=== PATIENT | female | born 1965 | race Caucasian/White ===

== ENCOUNTER → 2021-03-06 08:40 | Outpatient (CLI) | payer BC, SELFPAY ==
[2021-03-07 19:36] LABS: SARS-CoV-2 RNA PCR Negative
== END ==
PROVIDERS: PCP Family Medicine; Visit Provider Family Medicine
DX: R05 Cough (principal); Z20.822 Contact with and (suspected) exposure to COVID-19
CPT/HCPCS: C9803; U0003; U0005

== ENCOUNTER 2025-10-06 08:27 | Emergency (ER) | payer OTHER, SELFPAY ==
--- OUTSIDE RECORDS SUMMARY | 2025-10-06 08:28 | XMS_ITS | Clinical Summary ---
Author Organization [facility] Address [address] [place] [address] Phone Care Team Providers Care City Carrier Assistant Name Role Phone Unavailable Primary Care Provider Unavailabl e Medications ESTROGENS,CONJUG ATED (CONJUGATED ESTROGENS, BULK,) Misc Powd by Misc.(Non-D rug; Combo Route) route. 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 Gender Identity Not on file Sexual Orientation Not on file Plan of Treatment Health Maintenance Due Date Last Done Comments DTAP/TDAP/TD VACCINES (1 - Tdap) 1984 HPV/Cotest (21-29) 1986 CERVICAL CANCER SCREENING 1995 HPV/Cotest (30-65) 1995 PAP SMEAR 1995 COLORECTAL SCREENING 2010 Colorectal Cancer Screening 2010 FIT-DNA Q 3 years 2010 FIT/FOBT Q 1 year 2010 Flex Sig/CT Colonography Q 5 years 2010 BREAST CANCER SCREENING 05/22/2011 05/22/20 10, 05/14/2009, 05/08/2008 ZOSTER VACCINE (1 of 2) 2015 INFLUENZA VACCINE (#1) 2025 RSV VACCINE (60+ or ) (1 - 1-dose 75+ series) 2040 HEPATITIS B VACCINES Aged Out No long er eligible based on patient's age to complete this topic Procedures Procedure Name Priority Date/Time Associated Diagnosis Comments MAMMO SCREEN BILAT W OR WO CAD Routine 05/22/2010 11:22 AM CDT Other Screening Mammogram from Last 3 Months or Most Recently Relevant to Health Maintenance Results * MAMMO DIGITAL SCREEN BILAT (05/22/2010 11:22 AM CDT) Anatomical Region Laterality Modality Breast Bilateral Mammography Impressions 05/28/2010 7:17 AM CDT : No mammographic evidence of malignancy, without change since April 2008. OVERALL ASSESSMENT: BI-RADS: 1, negative. Narrative 05/28/2010 7:17 AM CDT BILATERAL SCREENING DIGITAL MAMMOGRAM WITH COMPUTER ASSISTED DIAGNOSIS, 05/22/2010 Clinical History: Screening mammogram. Findings: The parenchyma is predominantly fatty bilaterally. There is no mass, malignant calcification, lymphadenopathy or other sign of malignancy. The images were reviewed using the CAD system. Procedure Note Edmond Perera MD - 05/28/2010 BILATERAL SCREENING DIGITAL MAMMOGRAM WITH COMPUTER ASSISTED DIAGNOSIS,05/22/2010 Clinical History: Screening mammogram. Findings: The parenchyma is predominantly fatty bilaterally. There is nomass, malignant calcification, lymphadenopathy or other sign ofmalignancy. The images were reviewed using the CAD system. IMPRESSION: No mammographic evidence of malignancy, without change sinceApril 2008. OVERALL ASSESSMENT: BI-RADS: 1, negative. Miguel Barros MD MAMMO ORDERABLES Final Result from Last 3 Months or Most Recently Relevant to Health Maintenance
--- OUTSIDE RECORDS SUMMARY | 2025-10-06 08:28 | XMS_ITS | Encounter Summary ---
Author Organization [facility] [facility] Address 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
--- OUTSIDE RECORDS SUMMARY | 2025-10-06 08:28 | XMS_ITS | Encounter Summary ---
Author Organization [facility] Address 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 Gender Identity Not on file Sexual Orientation Not on file documented as of this encounter Plan of Treatment Not on file documented as of this encounter Procedures Procedure Name Priority Date/Time Associated Diagnosis Comments MAMMO SCREENING BILAT Routine 05/14/2009 5:02 PM CDT documented in this encounter Results * MAMMO SCREENING BILAT (05/14/2009 5:02 PM CDT) Anatomical Region Laterality Modality Breast Bilateral Other 05/14/2009 5:02 PM CDT Narrative 05/16/2009 8:27 AM CDT [facility] [place] [address], [place] [address] Admit Date: 05/14/2009 VIANCA VIDES Sex: F Admit Prov: MIGUEL BARROS Date: 1965 Primary Care Prov: CMRN: [id number] Room: [facility] SSN: [id number] IMAGING SERVICES Ordering Prov: MIGUEL BARROS Accession Number: [id number] Interpretation BILATERAL SCREENING MAMMOGRAM. 05/14/2009 HISTORY: Routine Screening. TECHNIQUE: Craniocaudal and mediolateral oblique projections of both breasts were obtained. COMPARISON: 04/2006 BREAST PARENCHYMAL COMPOSITION: Scattered fibroglandular densities. FINDINGS: No new dominant masses, suspicious calcifications, parenchymal asymmetry or areas of architectural distortion are identified in either breast. Since the prior study, there has been no significant interval change. OVERALL ASSESSMENT: BI-RADS category 1: Negative. RECOMMENDATION: Annual mammography is recommended. Assessment BIRADS: 1-Negative Recommendation: Normal interval follow-up Dictated by: REGINA FLORES Electronically signed by: REGINA FLORES 05/16/2009 08:26 Transcribed: 05/15/2009 21:37 AMK Procedure Note Regina Flores - 05/16/[address] [address] Admit Date: 05/14/2009 VIANCA VIDES Sex: F Admit Prov: MIGUEL BARROS Date:1965 Primary Care Prov: CMRN: [id number] Room: [facility] SSN: [id number] IMAGING SERVICES Ordering Prov: MIGUEL BARROS Interpretation BILATERAL SCREENING MAMMOGRAM. 05/14/2009 HISTORY: Routine Screening. TECHNIQUE: Craniocaudal and mediolateral oblique projections ofboth breasts were obtained. COMPARISON: 04/2006 BREAST PARENCHYMAL COMPOSITION: Scattered fibroglandular densities. FINDINGS: No new dominant masses, suspicious calcifications,parenchymal asymmetry or areas of architectural distortion are identified ineither breast. Since the prior study, there has been no significantinterval change. OVERALL ASSESSMENT: BI-RADS category 1: Negative. RECOMMENDATION: Annual mammography is recommended. Assessment BIRADS: 1-Negative Recommendation: Normal interval follow-up Dictated by: REGINA FLORES Electronically signed by: REGINA FLORES 05/16/2009 08:26 Transcribed: 05/15/2009 21:37 AMK Miguel Barros MD MAMMO ORDERABLES Final Result documented in this encounter Visit Diagnoses Diagnosis Other screening mammogram documented in this encounter
--- OUTSIDE RECORDS SUMMARY | 2025-10-06 08:28 | XMS_ITS | Encounter Summary ---
Author Organization [facility] Address [address] [place] [address] Care Team Providers Care Power Plant Operations Manager Name Role Phone Unavailable Primary Care Provider Unavailabl e Encounter Details Date Type Department Care Team (Late st Contact Info) Description 05/08/2008 Outpatient Historical HIS MAMM VAN Danny Barros MD [facility] [place] [phone] Miguel aBrros MD [address] [place] [phone] Other Screening Mammogram Social History Tobacco Use Types Packs/Day Years Used Date Smoking Tobacco: Never Assessed Comments Unknown Sex and Gender Information Value Date Recorded Sex Assigned at Not on file 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 Gender Identity Not on file Sexual Orientation Not on file documented as of this encounter Plan of Treatment Not on file documented as of this encounter Procedures Procedure Name Priority Date/Time Associated Diagnosis Comments MAMMO SCREENING BILAT Routine 05/08/2008 1:30 PM CDT documented in this encounter Results * MAMMO SCREENING BILAT (05/08/2008 1:30 PM CDT) Anatomical Region Laterality Modality Breast Bilateral Other 05/08/2008 1:30 PM CDT Narrative 05/09/2008 2:14 PM CDT [address] [address] Admit Date: 05/08/2008 VIANCA VIDES Sex: F Admit Prov: MIGUEL BARROS Date: 1965 Primary Care Prov: CMRN: [id number] [id number] [facility] Ordering Prov: MIGUEL BARROS Accession Number: [id number] Interpretation BILATERAL SCREENING MAMMOGRAM. Date: 05/08/2008 History: Routine Screening. Technique: Craniocaudal and mediolateral oblique projections of both breasts were obtained. Comparison: 04/2006 Breast Parenchymal Composition: Scattered fibroglandular densities. Findings: No suspicious mass, suspicious microcalcifications, or architectural distortion in either breast is identified. Since the prior study, there has been no significant interval change. Overall Assessment: BI-RADS category 1: Negative. Recommendation: Annual mammography is recommended. Assessment BIRADS: 1-Negative Recommendation: Normal interval follow-up Dictated by: REGINA FLORES Electronically signed by: REGINA FLORES 05/09/2008 14:13 Transcribed: 05/09/2008 12:12 AMK Procedure Note Regina Flores - 05/09/2008 [facility] [place] [place] [address], [place] [address] Admit Date: 05/08/2008 PEEWEEVIANCA Sex: F Admit Prov: MIGUEL BARROS Date:1965 Primary Care Prov: CMRN: [id number] [id number] [facility] Ordering Prov: MIGUEL BARROS Interpretation BILATERAL SCREENING MAMMOGRAM. Date: 05/08/2008 History: Routine Screening. Technique: Craniocaudal and mediolateral oblique projections ofboth breasts were obtained. Comparison: 04/2006 Breast Parenchymal Composition: Scattered fibroglandular densities. Findings: No suspicious mass, suspicious microcalcifications, or architectural distortion in either breast is identified. Since theprior study, there has been no significant interval change. Overall Assessment: BI-RADS category 1: Negative. Recommendation: Annual mammography is recommended. Assessment BIRADS: 1-Negative Recommendation: Normal interval follow-up Dictated by: FLORES, REGINA L Electronically signed by: REGINA FLORES 05/09/2008 14:13 Transcribed: 05/09/2008 12:12 AMK Miguel Barros MD MAMMO ORDERABLES Final Result documented in this encounter Visit Diagnoses Diagnosis Other screening mammogram documented in this encounter
[2025-10-06 08:35] VITALS: BP 124/49; PULSE 88; RESP 18; TEMP 35.8; O2SAT 98
--- NOTE | 2025-10-06 09:07 | ED.URI ---
HPI - URI/Sore Throat General Chief Complaint: Upper Respiratory Infection Stated Complaint: Cough Time Seen by Provider: 10/06/25 08:50 Source: patient and RN notes reviewed Mode of arrival: ambulatory Limitations: no limitations History of Present Illness HPI Narrative: 60-year-old female patient presents Express Care complaining of upper respiratory symptoms for 3 weeks. Patient reports cough, congestion, mucopurulent nasal drainage, sinus pressure has not gotten better last 3 weeks. Patient denies any other upper respiratory symptoms, chest pain, difficulty breathing, nausea vomiting, diarrhea, fevers, body aches, chills, or any other symptoms. Due to [id number] cold and flu medication without relief. Patient reports a history of hypertension. Related Data Allergies Allergy/AdvReac Type Severity Reaction Status Date / Time amoxicillin (From Augmentin) AdvReac Intermediate Gastrointestinal Verified 10/06/25 08:53 Upset clavulanic acid (From AdvReac Intermediate Gastrointestinal Verified 10/06/25 08:53 Augmentin) Upset MEPERIDINE HCL AdvReac Intermediate Nausea Uncoded 10/06/25 08:31 Review of Systems Review of Systems: CONSTITUTIONAL: Denies fever, chills, or sweats. EYES: Denies visual changes, redness, or discharge. ENT: Denies rhinorrhea, sore throat, or otalgia. Positive for congestion, sinus pressure, nasal drainage. CARDIOVASCULAR: Denies chest pain, palpitations, or edema. RESPIRATORY: Positive for cough. Negative for wheezing or dyspnea. GASTROINTESTINAL: Denies abdominal pain, nausea, vomiting, or diarrhea. GENITOURINARY: Denies dysuria or hematuria. SKIN: Denies rash or itching. MUSCULOSKELETAL: Denies back pain, joint pain, or myalgia. NEUROLOGIC: Denies headache, numbness, or weakness. PSYCHIATRIC: Denies anxiety or depression. All other systems reviewed are negative, except as documented in HPI. [facility] Past Medical History Medical History Mixed hyperlipidemia Essential hypertension Allergic rhinitis Colitis Surgical History Surgical History History of ankle surgery ORIF R History of section History of removal of ovarian cyst Family History Family History Father Parkinson disease Heart disease Mother Hypertension Diabetes mellitus Grandparent Acute myocardial infarction Heart disease Diabetes mellitus Breast cancer Social History Social History Smoking status: Former smoker Alcohol intake: current Drinks per week: 5 Substance use: never Substance use type: does not use Lack of Transportation: No Lack of Food: Never True Current Housing: I Have Housing Concerned About Future Housing: No Difficulty Paying Gas/Electric Bills: No Difficulty Paying for Meds: No Currently Unemployed: No Education: High School Diploma/GED Difficulty w/ Childcare or Family Care: No Living arrangements: with family Occupation/Education: occupation Gender identity (if verbalized by the patient): Female Sexual Orientation (if Verbalized by the Patient): Straight or Heterosexual Spiritual care concerns: No Comments At the time of my signature, I reviewed and agree with the nursing past medical, surgical, social, and family history. There is no relevant family history pertinent to the patient complaint. Exam Narrative: GENERAL: This is a well-nourished, well-developed adult, in no apparent distress. They are non ill-appearing, nontoxic appearing. HEAD: normocephalic, atraumatic. EYES: Sclera clear/white. Conjunctiva normal. Vision is grossly intact. Extraocular movements intact EARS: External ears normal, auditory canals clear and without drainage, TMs normal without perforation. Hearing grossly intact. NOSE: External nose normal with no obvious nasal discharge, nasal turbinates erythematous, no rhinorrhea. Maxillary sinus tenderness to palpation. THROAT: Mucous membranes moist, posterior pharynx cobblestone appearing. Uvula midline. Postnasal drip present. NECK: Neck supple, non-tender without lymphadenopathy, masses or thyromegaly. CARDIOVASCULAR: Regular rate and rhythm without murmurs, gallops, or rubs. RESPIRATORY: Clear to auscultation. Breath sounds equal bilaterally. No wheezes, rales, or rhonchi. SKIN: warm, Dry, intact with no suspicious lesions or rash, good texture and turgor. NEURO: awake, alert, and oriented to person, place and time. There were no obvious focal neurologic abnormalities. EXTREMITIES: No joint tenderness, effusion, or edema noted. BACK: Nontender without deformity. Course Course Level of Care: Express Care Visit Vital Signs Vital signs: Vital Signs Temperature 96.5 F L 10/06/25 08:35 Pulse Rate 88 10/06/25 08:35 Respiratory Rate 18 10/06/25 08:35 Blood Pressure 124/49 L 10/06/25 08:35 Pulse Oximetry 98 10/06/25 08:35 Oxygen Delivery Room Air 10/06/25 08:35 Temperature 96.5 F L 10/06/25 08:35 Pulse Rate 88 10/06/25 08:35 Respiratory Rate 18 10/06/25 08:35 Blood Pressure 124/49 L 10/06/25 08:35 Pulse Oximetry 98 10/06/25 08:35 Oxygen Delivery Room Air 10/06/25 08:35 MDM MDM Narrative Medical decision making narrative: Given patient's length of symptoms likely she has bacterial sinusitis. Will treat with doxycycline given adverse reaction to Augmentin. Will send her is azelastine spray as well. Discussed physical exam findings. Advised supportive measures and signs/symptoms to go to the ER. Pt is appropriate for outpt treatment and f/u. Differential Diagnosis Differential Diagnosis: Differential diagnostic considerations for upper respiratory infection include upper respiratory infection, croup, otitis media, sinusitis, viral infection, bronchitis, influenza, pharyngitis, strep, uvulitis. Critical Care Time Critical Care Time Critical Care Time: No Discharge Plan Discharge Clinical Impression: Sinusitis Qualifiers: Sinusitis location: unspecified location Chronicity: acute Recurrence: non-recurrent Qualified Code(s): J01.90 - Acute sinusitis, unspecified Patient Disposition: Home Condition: Stable Instructions: Antibiotic Form, Sinusitis (ED) Additional Instructions: Take the antibiotics as directed and complete the course even if you start to feel better. Wear sunscreen if you are going to be outside in the sun while taking doxycycline. You may use a Neti pot saline rinse 3 times a day with lukewarm distilled water Continue to take Tylenol or Motrin as needed for pain or fevers. Use a humidifier or vaporizer at night. May try spoonful or warm honey at night for the cough. Drink plenty of water. 8-10 glasses per day. Use the is azelastine spray as directed. Take mucinex 2 times per day and be sure to take with 8oz of water. Follow up with Primary provider in 3-5 days Please go to the ER if he develops any difficulty breathing, chest pain, vomiting, worsening symptoms, or any other concerns Patient Language: Qatari Prescriptions: New doxycycline monohydrate 100 mg capsule 100 mg PO BID 7 Days Qty: 14 0RF azelastine 205.5 mcg (0.15 %) spray,non-aerosol 2 spray intranasal DAILY Qty: 23 0RF Rx Instructions: administer into each nostril No Action azelastine 0.05 % drops See Rx Instructions .ROUTE .COMPLEX Qty: 6 5RF Dose Instruction: INSTILL 1 DROP INTO AFFECTED EYE TWICE DAILY Rx Instructions: INSTILL 1 DROP INTO AFFECTED EYE TWICE DAILY benazepril-hydrochlorothiazide 20-25 mg tablet 1 tablet PO DAILY Qty: 90 1RF amlodipine 5 mg tablet 5 mg PO DAILY Qty: 30 6RF Follow-up/Referrals: Gómez Espino MD [Primary Care Provider, [facility]] Time of Disposition: 09:06
== END 2025-10-06 09:08 | disposition home or self-care (01) ==
PROVIDERS: PCP Family Medicine
DX: J01.90 Acute sinusitis, unspecified (principal); Z87.891 Personal history of nicotine dependence; I10 Essential (primary) hypertension; E78.2 Mixed hyperlipidemia
CPT/HCPCS: 99213; G0463